=== PATIENT | female | born 1990 | race Caucasian/White ===

== ENCOUNTER 2018-04-14 17:36 | Inpatient (IN) ==
[2018-04-14] MEDS ORDERED: Zolpidem Tartrate 5 MG Tablet PO PRN (18:59)
[2018-04-14 19:09] LABS: Baso % (Auto) 0.4 % (0.0-2.0); Eos # (Auto) 0.1 th/mm3 (0.0-0.4); Eos % (Auto) 0.8 % (0.0-4.0); Hematocrit 34.5 % (35.0-46.0); Hemoglobin 11.6 gm/dL (11.6-15.3); Lymph # (Auto) 1.7 th/mm3 (1.0-4.8); Lymph % (Auto) 15.2 % (9.0-44.0); Mean Corpuscular HGB Conc 33.7 % (32.0-36.0); Mean Corpuscular Hemoglobin 30.1 pg (27.0-34.0); Mean Corpuscular Volume 89.3 fL (80.0-100.0); Mean Platelet Volume 9.2 fL (7.0-11.0); Mono # (Auto) 0.9 th/mm3 (0.0-0.9); Neut # (Auto) 8.3 th/mm3 (1.8-7.7); Neut % (Auto) 75.6 % (16.0-70.0); Platelet Count 228 th/mm3 (150-450); Red Blood Count 3.86 mil/mm3 (4.00-5.30); Red Cell Distribution Width 13.7 % (11.6-17.2)
[2018-04-14] MEDS ORDERED: fentaNYL Citrate Inj 100 MCG/2 ML Ampul IV.PUSH PRN ×2 (19:31)
[2018-04-14] MEDS ORDERED: Sodium Chlor 0.9% Inj 500 ML IV.SIG PRN (19:31)
[2018-04-14] MEDS ORDERED: Oxytocin 30 Units/500ml Premix 30 UNITS/500 ML BAG IV.SIG ONE (19:31)
[2018-04-14] MEDS ORDERED: Naloxone Inj 0.4 MG/ML Vial IV.PUSH PRN (19:31)
[2018-04-14] MEDS ORDERED: Sod Chloride 0.9% Inj 1,000 ML IV.CONT PRN (19:31)
[2018-04-14 19:41] LABS: Amphetamine Urine With Conf Neg (Neg); Bacteria,Urine Rare /hpf; Benzodiazepine Urine With Conf Neg (Neg); Bilirubin,Urine Negative (Negative); Clarity,Urine Clear (Clear); Color,Urine Yellow (Yellw/Straw); Glucose,Urine (UA) Negative (Negative); Leukocyte Esterase,Urine Negative (Negative); Mucus,Urine Few /lpf (Occasional); Nitrite,Urine Negative (Negative); Specific Gravity,Urine 1.016 (1.002-1.035); Squamous Epithelial Cell,Urine 3 /hpf (0-5)
[2018-04-14] MEDS ORDERED: Citric Acid/Sodium Citrate Liq 30 ML UDC PO SCH (19:45)
[2018-04-15] MEDS ORDERED: fentaNYL 2MCG-Bupiv 0.125% Epi 150 ML EPIDURAL ONE (05:13)
[2018-04-15] MEDS ORDERED: Lidocaaine 1.5%/Epinephrine 1:200,000 PF Inj 5 ML Amp ONE (05:32)
[2018-04-15] MEDS ORDERED: Lidocaine PF 1% Inj 5 ML Vial ONE (05:33)
[2018-04-15] MEDS ORDERED: fentaNYL 2MCG-Bupiv 0.125% Epi 150 ML EPIDURAL PRN (06:35)
[2018-04-15] MEDS ORDERED: fentaNYL Citrate Inj 100 MCG/2 ML Ampul EPIDURAL ONE (06:35)
[2018-04-15] MEDS ORDERED: Oxytocin 30 Units/500ml Premix 30 UNITS/500 ML BAG IV.SIG PRN (07:59)
--- NOTE | 2018-04-15 07:59 | P.OBLABOR ---
Subjective Interval history: pt actively deloris with cervidil (removed), has epidural - feeling better now Objective Vital Signs: Vital Signs - 8 hr 04/15/18 01:22 04/15/18 02:41 04/15/18 03:27 Temperature 98.0 F Pulse Rate 64 57 L 57 L Respiratory Rate 16 16 16 Blood Pressure 98/55 L 97/61 L 106/58 L 04/15/18 05:08 04/15/18 05:40 04/15/18 05:50 Temperature Pulse Rate 102 H 108 H 92 H Respiratory Rate 18 Blood Pressure 123/86 117/70 112/85 04/15/18 05:55 04/15/18 06:01 04/15/18 06:06 Temperature Pulse Rate 85 92 H 89 Respiratory Rate 18 Blood Pressure 101/67 100/40 L 104/67 04/15/18 06:10 04/15/18 06:25 04/15/18 06:30 Temperature Pulse Rate 86 78 87 Respiratory Rate Blood Pressure 106/76 110/68 108/70 04/15/18 06:45 04/15/18 07:00 04/15/18 07:30 Temperature Pulse Rate 70 74 65 Respiratory Rate 18 Blood Pressure 96/67 L 94/51 L 87/47 L 04/15/18 07:41 Temperature 98.1 F Pulse Rate Respiratory Rate 17 Blood Pressure Objective: Pelvic Exam: Cervix: [-] Dilatation: [-] 3-4 Effacement: [-] 50 Station: [-] -1 Presentation: [-] vtx Membranes: [intact or ruptured] arom, clear Uterine Contractions: [-] q4min FHT's: Category: [-] Baseline: [-] 140--150s Reactive: [-] R Variability: [-] good Decels: [-] occas variables Weeks Gestation: 39 Patient Started Active Labor: Yes Active Labor Start Date: 04/15/18 Active Labor Start Time: 07:57 Medical Induction of Labor: Yes Medical Induction Start Date: 04/14/18 Medical Induction Start Time: 19:00 Artificial Rupture of Membrane: Yes Artificial ROM Date: 04/15/18 Artificial ROM Time: 07:58 Assessment and Plan - Diagnosis (1) Code(s): Z34.90 - Encounter for supervision of normal , unspecified, unspecified trimester Status: Acute - Plan arom done, pitocin prn, has epidural, anticipate Discharge Planning: routine - Attending Attestation pt seen by me (1) Qualifiers: Weeks of gestation: 39 weeks Qualified Code(s): Z3A.39 - 39 weeks gestation of
--- NOTE | 2018-04-15 08:48 | MH ---
cc: Jennifer Liz MD DATE OF ADMISSION: 04/14/2018 HISTORY OF PRESENT ILLNESS: Intrauterine at 39 weeks and 3 days, admitted for induction of labor for suspected small for gestational age. care has been with [facility]. She is blood type A negative, received RhoGAM 02/05/2018. Her GCT was normal. Group B strep negative. PAST OBSTETRICAL HISTORY: Significant for 1 vaginal delivery in 2011 at 40 weeks, 7 pounds 15 ounces. PAST GYNECOLOGIC HISTORY: She had a colposcopy done in 2014 for low-grade MORTEZA. Her last Pap smear in 09/2017 was normal. PAST MEDICAL HISTORY: She denies hypertension, diabetes, or asthma. PAST SURGICAL HISTORY: She denies. SOCIAL HISTORY: She denies toxic habits. MEDICATIONS: She takes vitamins. ALLERGIES: NO KNOWN DRUG ALLERGIES. PHYSICAL EXAMINATION: VITAL SIGNS: Stable. Blood pressure is 100/66, she is 168 pounds. HEAD, HEART, CHEST, LUNG: Exams are within normal limits. ABDOMEN: Soft, nontender, gravid. PELVIC: Vaginal exam in the office was fingertip, 50% effaced. EXTREMITIES: No edema, cyanosis, or clubbing. Nontender. ASSESSMENT: She is 27 years old, 2, para 1. Intrauterine at 39+ weeks, suspect small for gestational age. PLAN: To admit for Cervidil cervical ripening, followed by Pitocin augmentation. Anticipate vaginal delivery. Analgesia as needed. MD FRANK Mendez/jasson , 08:32 AM , 08:37 AM
[2018-04-15] MEDS ORDERED: Lidocaine 1% Inj 50 ML Vial ONE (10:30)
[2018-04-15] MEDS ORDERED: Witch Hazel 50%/Glyderin 12.5% 40 Pad Jar RECTAL PRN (11:14)
[2018-04-15] MEDS ORDERED: Oxytocin 30 Units/500ml Premix 30 UNITS/500 ML BAG IV.CONT PRN (11:14)
[2018-04-15] MEDS ORDERED: Bisacodyl 10 MG Supp RECTAL PRN (11:14)
[2018-04-15] MEDS ORDERED: Benzocaine 20% Top Spray 60 ML Can TOPICAL PRN (11:14)
[2018-04-15] MEDS ORDERED: Naloxone Inj 0.4 MG/ML Vial IV.PUSH PRN (11:14)
[2018-04-15] MEDS ORDERED: Zolpidem Tartrate 5 MG Tablet PO PRN (11:14)
--- NOTE | 2018-04-15 11:14 | P.OBDELI ---
Weeks Gestation: 39 Patient Started Active Labor: Yes Active Labor Start Date: 04/15/18 Active Labor Start Time: 03:00 Medical Induction of Labor: Yes Medical Induction Start Date: 04/14/18 Medical Induction Start Time: 19:00 Artificial Rupture of Membrane: Yes Artificial ROM Date: 04/15/18 Anesthesia: Epidural Episiotomy: none Vaginal Delivery: Normal Presentation: Occiput anterior Nuchal Cord: x1, Other Delayed Cord Clamping (45 sec): No (tight nuchal cord) Placenta: Spontaneous delivery Laceration: 1 deg Repair: Chromic interrupted Estimated blood loss (mL): 250 Infant: Male ( 8/9)
[2018-04-15] MEDS ORDERED: Diphtheria/Tetanus/Pertussis Vaccine Inj 0.5 ML Syringe IM ONE (16:00)
[2018-04-15] MEDS ORDERED: Measles/Mumps/Rubella Vaccine Inj 0.5 ML Vial SQ ONE (16:00)
[2018-04-15] MEDS ORDERED: Rho Immune Globulin Inj 1,500 UNIT/1.3 ML Vial IM ONE (16:00)
[2018-04-15] MEDS: Acetaminophen 325 MG Tablet PO PRN (19:32)
[2018-04-15] MEDS ORDERED: Senna/Docusate Sodium 8.6/50 MG Tablet PO SCH (21:00)
[2018-04-16] MEDS: Acetaminophen 325 MG Tablet PO PRN ×2 (06:11→14:20)
--- NOTE | 2018-04-16 08:08 | P.PNOB ---
Subjective Post day: 1 Interval history: PPD#1, S/P ,doing well,breast feeding. anticipate discharge later today. Objective Vital Signs/I&O: Vital Signs 04/15/18 08:09 04/15/18 08:12 04/15/18 08:14 Temperature Pulse Rate 59 L 59 L Respiratory Rate 18 Blood Pressure 95/47 L 106/52 L 04/15/18 08:30 04/15/18 09:30 04/15/18 10:00 Temperature Pulse Rate 87 63 61 Respiratory Rate Blood Pressure 114/74 101/62 108/64 04/15/18 11:10 04/15/18 11:25 04/15/18 11:46 Temperature 98.2 F Pulse Rate 91 H 131 H 75 Respiratory Rate 18 Blood Pressure 121/88 114/85 116/68 04/15/18 12:30 04/15/18 12:45 04/15/18 12:55 Temperature Pulse Rate 67 78 Respiratory Rate 19 19 Blood Pressure 107/65 113/67 04/15/18 13:00 04/15/18 15:30 04/15/18 20:00 Temperature 98.0 F 98.1 F Pulse Rate 77 69 59 L Respiratory Rate 18 18 Blood Pressure 114/69 117/68 119/79 Intake & Output 04/15/18 04/16/18 04/16/18 18:59 06:59 18:59 Intake Total 1000 / 1000 Balance 1000 / 1000 Intake: IV 1000 / 1000 LR 1000 mL Inj 1,000 ML @ 125 1000 / 1000 mls/hr IV.CONT .Q8H [facility] Rx#: [id number] Result Diagrams: 04/14/18 17:50 Objective Remarks: GENERAL: Well-nourished, well-developed patient. CARDIOVASCULAR: Regular rate and rhythm without murmurs, gallops, or rubs. RESPIRATORY: Breath sounds equal bilaterally. No accessory muscle use. ABDOMEN/GI: Abdomen soft, non-tender. Fundus: Firm, non-tender at umbilicus. GENITOURINARY: Light to moderate bleeding. EXTREMITIES: No cyanosis or edema, non-tender, without signs of DVT. Medications and IVs: Active Medications Acetaminophen (Tylenol) 650 mg PO Q4H PRN PRN Reason: PAIN SCALE 1 TO 2 Last Admin: 04/16/18 06:11 Dose: 650 mg Al Hydroxide/Mg Hydroxide (Milk Of Magnesia Liq) 30 ml PO Q12H PRN PRN Reason: Mild Constipation Benzocaine (Americaine 20% Top [place]) 1 spray TOPICAL Q4H PRN PRN Reason: For Perineum Discomfort Bisacodyl (Dulcolax Supp) 10 mg RECTAL DAILY PRN PRN Reason: SEVERE CONSITIPATION Citric Acid/Sodium Citrate (Sodium Citrate/Citric Acid Liq) 30 ml PO DREDGE DEC[place]AND [facility] Stop: 04/18/18 19:44 Fentanyl Citrate (Fentanyl Inj) 50 mcg IV.PUSH Q1H PRN PRN Reason: Pain Scale 3 - 5 Fentanyl Citrate (Fentanyl Inj) 100 mcg IV.PUSH Q1H PRN PRN Reason: PAIN SCALE 6 TO 10 Lactated Ringer's (Lr 1000 Ml Inj) 1,000 mls @ 125 mls/hr IV.CONT .Q8H [facility] Last Admin: 04/15/18 11:20 Dose: Not Given Lactated Ringer's (Lr 1000 Ml Inj) 1,000 mls @ 125 mls/hr IV.CONT .Q8H [facility] Last Admin: 04/15/18 19:21 Dose: Not Given Lactated Ringer's (Lr 1000 Ml Inj) 1,000 mls @ 3,000 mls/hr IV.SIG UNSCH PRN PRN Reason: compromise or epidural Sodium Chloride (Ns Inj) 500 mls @ 1,000 mls/hr IV.SIG UNSCH PRN PRN Reason: SEE LABEL COMMENTS Sodium Chloride (Ns Inj) 1,000 mls @ 100 mls/hr IV.CONT .Q10H PRN PRN Reason: SEE LABEL COMMENTS Fentanyl/Bupivacaine/Sodium Chlor (Fentanyl 2 Mcg-Bupiv 0.125% Epi) 150 mls @ 12 mls/hr EPIDURAL PRN PRN PRN Reason: for Labor Pain Last Admin: 04/15/18 07:07 Dose: 12 mls/hr Oxytocin (Pitocin 30 Units/Ns 500 Ml Premix) 30 units in 500 mls @ 2 mls/hr IV.SIG TITRATE PRN; Protocol PRN Reason: For induction of labor Oxytocin (Pitocin 30 Units/Ns 500 Ml Premix) 30 units in 500 mls @ 100 mls/hr IV.CONT UNSCH PRN PRN Reason: Heavy bleeding Ibuprofen (Motrin) 800 mg PO Q8H PRN PRN Reason: For Cramping Last Admin: 04/16/18 06:10 Dose: 800 mg Lactulose (Lactulose Liq) 30 ml PO DAILY PRN PRN Reason: SEVERE CONSITIPATION Lidocaine HCl (Xylocaine 1% Inj) 0.1 ml I-DERMAL PRN PRN PRN Reason: For IV start Stop: 04/17/18 19:30 Lidocaine HCl (Xylocaine 1% Inj) 10 ml INFILTRATN PRN PRN PRN Reason: For episiotomy repair Stop: 04/16/18 19:30 Mineral Oil (Muri-Lube Oil) 10 ml TOPICAL PRN PRN PRN Reason: PRN perineal massage Naloxone HCl (Narcan Inj) 0.1 mg IV.PUSH Q2M PRN PRN Reason: for opiate reversal Naloxone HCl (Narcan Inj) 0.1 mg IV.PUSH Q2M PRN PRN Reason: for opiate reversal Ondansetron HCl (Zofran Inj) 4 mg IV.PUSH Q6H PRN PRN Reason: NAUSEA OR VOMITING Ondansetron HCl (Zofran Odt) 4 mg PO Q6H PRN PRN Reason: NAUSEA OR VOMITING Vit/Calcium/Iron/Folic Ac (Stuartnatal Plus 3) 1 tab PO DAILY G[facility] Senna/Docusate Sodium (Bria-Colace) 1 tab PO BID GINA Sennosides (Senokot) 17.2 mg PO Q12H PRN PRN Reason: Moderate Constipation Sodium Chloride (Ns Flush) 2 ml IV.FLUSH BID GINA Sodium Chloride (Ns Flush) 2 ml IV.FLUSH PRN PRN PRN Reason: FLUSH AFTER USING IV ACCESS Witch Stormy/Glycerin (Tucks Pads) 1 applicatio RECTAL QID PRN PRN Reason: HEMORRHOIDS Zolpidem Tartrate (Ambien) 5 mg PO HS PRN PRN Reason: SLEEP Assessment and Plan - Diagnosis (1) Code(s): Z34.90 - Encounter for supervision of normal , unspecified, unspecified trimester Status: Acute - Plan PPD#1, doing well .plan discharge later today . Discharge Planning: routine; today (1) Qualifiers: Weeks of gestation: 39 weeks Qualified Code(s): Z3A.39 - 39 weeks gestation of
[2018-04-16] MEDS ORDERED: Prenatal Vit/Ca/Iron/Folic Acid Tablet PO SCH (09:00)
== END 2018-04-16 16:51 | disposition home or self-care (01) ==
LOC: H2E 17:36 → H1EA 04-15 13:23
PROVIDERS: ADMIT Obstetrics & Gynecology; ATTEND Obstetrics & Gynecology